=== PATIENT | male | born 1995 | race Caucasian/White ===

== ENCOUNTER 2023-03-27 15:34 | Emergency (ER) | payer SELFPAY ==
[2023-03-27] VITALS (8 sets, daily range): BP systolic 121–154; BP diastolic 67–91; PULSE 70–100; RESP 15–17; TEMP 36.6; O2SAT 95–100; BMI 27.3
--- NOTE | 2023-03-27 16:14 | ED_ITS ---
Documented by User: Kee Zepeda DO 03/28/23 05:47 HPI - Abdominal Pain General: Chief Complaint: Abdominal Pain Stated Complaint: upper abd pain, n/v since Time Seen by Provider: 03/27/23 15:50 Source: patient Mode of arrival: ambulatory History of Present Illness: 27-year-old male presents to the emergency room with complaints of nausea vomiting. He said for the last several days 2 days ago he was at another local ER was given IV fluids and antiemetics. He states he continues to have discomfort persistent nausea vomiting denies hematochezia melena hematemesis cough cramps no dysuria urgency or frequency no chest pain. He has been afebrile. MD elicited complaint: abdominal pain Pertinent past history: none Onset (ago): day(s) Pain Consistency: constant Quality: cramping Relieving factors: nothing Associated Symptoms: Reports nausea and vomiting; Denies anorexia, belching, bloating, change in bowel habits, change in stool character, chills, coffee ground emesis, constipation, GI cramping, diarrhea, dyspepsia, dysuria, excessive flatus, fever(s), heartburn, hematochezia, hematuria, hematemesis, fecal incontinence, loose stools, melena, poor appetite and syncope Review of Systems Const: Reports: fatigue and malaise; Denies: fever(s) or chills ENMT: Denies: throat pain, ear or mastoid pain, nasal discharge or nasal congestion Card: Denies: chest pain or syncope Resp: Denies: dyspnea, productive cough or non-productive cough GI: Reports: nausea and vomiting; Denies: abdominal pain, hematemesis, coffee ground emesis, heartburn, diarrhea, constipation, bloating, GI cramping, belching, excessive flatus, fecal incontinence, change in bowel habits, change in stool character, hematochezia or melena : Denies: dysuria, urinary frequency or hematuria Skin/Breast: Denies: rash or pruritus Physical Exam Const: GENERAL APPEARANCE: cooperative and comfortable ORIENTATION/CONSCIOUSNESS: Yes awake, Yes oriented to person, Yes oriented to place and Yes oriented to time HENMT: COMMON NORMALS: normocephalic, atraumatic and hearing grossly normal bilaterally HEAD & SCALP: normocephalic and atraumatic Resp: COMMON NORMALS: normal respiratory effort, No retractions, No use of accessory muscles and clear to auscultation bilaterally AUSCULTATION: clear to auscultation bilaterally Cardio: COMMON NORMALS: regular rate, regular rhythm and No murmurs present (Cardio) RATE: regular rate RHYTHM: regular rhythm GI: COMMON NORMALS: Soft to palpation and No hepatosplenomegaly present AUSCULTATION: Yes normoactive bowel sounds PALPATION: Yes Soft to palpation, No Tenderness to palpation present (GI), No Guarding due to palpation present (GI) and Yes No hepatosplenomegaly present Extremity: COMMON NORMALS: normal to inspection, capillary refill normal, no clubbing, cyanosis or edema, no calf tenderness and no pedal edema Neuro: SENSORIUM/ORIENTATION: Yes oriented to person, Yes oriented to place an d Yes oriented to time Skin: COMMON NORMALS: no rashes or lesions noted GENERAL SKIN EXAM: no rashes or lesions noted Course Vital Signs: Vital signs: Vital Signs Temperature 97.8 F 03/27/23 15:45 Pulse Rate 74 03/27/23 20:11 Respiratory Rate 17 03/27/23 20:11 Blood Pressure 135/84 03/27/23 20:11 Pulse Oximetry 98 03/27/23 20:11 Oxygen Delivery Me thod Nasal Cannula 03/27/23 20:00 Oxygen Flow Rate 2 03/27/23 20:00 MDM - Abdominal Pain Medical Decision Making Care signed out to Dr. Moya at change of shift. See final notes for diagnosis and disposition. Patient presents here with vomiting he feels much improved here his electrolytes have improved with IV fluids we will prescribe him Zofran we will prescribe him potassium as well he is to follow-up with his PCP along with general surgery return if worsening his exam at discharge is benign no signs of acute surgical abdomen. Lab Data 03/27/23 16:14 03/27/23 19:03 Labs/Radiology: Laboratory Results WBC 6.8 10^3/uL (4.0-10.0) 03/27/23 16:14 RBC 5.44 10^6/uL (4.1-5.3) H 03/27/23 16:14 Hgb 16.4 g/dL (11.7-16.6) 03/27/23 16:14 Hct 44.6 % (42.0-52.0) 03/27/23 16:14 MCV 82.0 fl (80-94) 03/27/23 16:14 MCH 30.1 pg (28.0-34.0) 03/27/23 16:14 MCHC 36.8 g/dL (30.0-36.0) H 03/27/23 16:14 RDW 11.0 % (12.1-15.1) L 03/27/23 16:14 Plt Count 182 10^3/cmm (130-400) 03/27/23 16:14 MPV 10.8 fL (7.4-10.4) H 03/27/23 16:14 Neut % (Auto) 62.5 % 03/27/23 16:14 Lymph % (Auto) 18.1 % 03/27/23 16:14 Oliver % (Auto) 17.6 % 03/27/23 16:14 Eos % (Auto) 1.2 % 03/27/23 16:14 Baso % (Auto) 0.3 % 03/27/23 16:14 Neut # (Auto) 4.24 10^3/uL (1.8-7.7) 03/27/23 16:14 Lymph # (Auto) 1.2 10^3/uL (0.8-4.8) 03/27/23 16:14 Oliver # (Auto) 1.2 10^3/uL (0.2-0.9) H 03/27/23 16:14 Eos # (Auto) 0.1 10^3/uL (0.0-0.8) 03/27/23 16:14 Baso # (Auto) 0.0 10^3/uL (0.0-0.1) 03/27/23 16:14 Nucleated RBC % (auto) 0 % 03/27/23 16:14 Nucleated RBCs # 0.0 /100WBC 03/27/23 16:14 Sodium 130 mmol/L (136-145) L 03/27/23 19:03 Potassium 3.0 mmol/L (3.5-5.1) L 03/27/23 19:03 Chloride 93 mmol/L (98-107) L 03/27/23 19:03 Carbon Dioxide 28 mmol/L (22-29) 03/27/23 19:03 Anion Gap 12.0 (5-19) 03/27/23 19:03 BUN 9 mg/dL (6-20) 03/27/23 19:03 Creatinine 0.9 mg/dL (0.7-1.2) 03/27/23 19:03 GFR Calculation 102.8 mL/min (90-130) 03/27/23 19:03 Glucose 95 mg/dL (65-115) 03/27/23 19:03 Calculated Osmolality 268 mOsm/kg (285-295) L 03/27/23 19:03 Calcium 7.8 mg/dL (8.5-10.5) L 03/27/23 19:03 Total Bilirubin 1.1 mg/dL (0.15-1.2) 03/27/23 16:14 AST 36 U/L (0-40) 03/27/23 16:14 ALT 22 U/L (0-41) 03/27/23 16:14 Alkaline Phosphatase 49 U/L (40-130) 03/27/23 16:14 Total Protein 6.9 g/dL (6.6-8.7) 03/27/23 16:14 Albumin 4.3 g/dL (3.5-5.2) 03/27/23 16:14 Globulin 2.6 g/dL (1.3-4.6) 03/27/23 16:14 Lipase 25 U/L (13-60) 03/27/23 16:14 Urine Color Yellow (Yellow) 03/27/23 18:57 Urine Appearance Clear (CLEAR) 03/27/23 18:57 Urine pH 6.5 (5-7) 03/27/23 18:57 Ur Specific [place] 1.005 (1.005-1.030) 03/27/23 18:57 Urine Protein Neg (Negative) 03/27/23 18:57 Urine Glucose (UA) Norm (Normal) 03/27/23 18:57 Urine Ketones 2+ (Negative) H 03/27/23 18:57 Urine Blood Neg (Negative) 03/27/23 18:57 Urine Nitrate Negative (Negative) 03/27/23 18:57 Urine Bilirubin Neg (Negative) 03/27/23 18:57 Urine Urobilinogen Norm mg/dL (Negative) 03/27/23 18:57 Ur Leukocyte Esterase Negative (Negative) 03/27/23 18:57 Discharge Plan Discharge Patient Disposition: Home Clinical Impression: Abdominal pain, Vomiting, Hypokalemia, Hyponatremia Condition: Stable Prescriptions: New hydrocodone-acetaminophen 5-325 mg tablet 1 tab PO Q6H PRN (Reason: pain) Qty: 14 0RF ondansetron 4 mg tablet,disintegrating 4 mg PO Q6H PRN (Reason: nausea and vomiting) Qty: 14 0RF potassium chloride 40 mEq/15 mL liquid 40 meq PO BID 4 Days Qty: 120 0RF Discharge Orders: Discharge ED (Routine); Ordered 03/27/23 Ordered By: Milton Moya Discharge Diet: Advance as tolerated Discharge Activity: Resume usual activity Patient Instructions: Hyponatremia (ED), Hypokalemia (ED), Acute Nausea and Vomiting (ED), Abdominal Pain (ED) Coding Level of Care Code ED Prevention Coordinator for Chg Fwd Documented by User: Milton Moya MD 03/27/23 20:02 HPI - Abdominal Pain General: Chief Complaint: Abdominal Pain Stated Complaint: upper abd pain, n/v since Time Seen by Provider: 03/27/23 15:50 Course Vital Signs: Vital signs: Vital Signs Temperature 97.8 F 03/27/23 15:45 Pulse Rate 74 03/27/23 20:11 Respiratory Rate 17 03/27/23 20:11 Blood Pressure 135/84 03/27/23 20:11 Pulse Oximetry 98 03/27/23 20:11 Oxygen Delivery Me thod Nasal Cannula 03/27/23 20:00 Oxygen Flow Rate 2 03/27/23 20:00 MDM - Abdominal Pain Medical Decision Making Patient presents here with vomiting he feels much improved here his electrolytes have improved with IV fluids we will prescribe him Zofran we will prescribe him potassium as well he is to follow-up with his PCP along with general surgery return if worsening his exam at discharge is benign no signs of acute surgical abdomen. Medical Records I reviewed the patient's medical records. Lab Data I reviewed the patient's lab results. 03/27/23 16:14 03/27/23 19:03 Labs/Radiology: Laboratory Results WBC 6.8 10^3/uL (4.0-10.0) 03/27/23 16:14 RBC 5.44 10^6/uL (4.1-5.3) H 03/27/23 16:14 Hgb 16.4 g/dL (11.7-16.6) 03/27/23 16:14 Hct 44.6 % (42.0-52.0) 03/27/23 16:14 MCV 82.0 fl (80-94) 03/27/23 16:14 MCH 30.1 pg (28.0-34.0) 03/27/23 16:14 MCHC 36.8 g/dL (30.0-36.0) H 03/27/23 16:14 RDW 11.0 % (12.1-15.1) L 03/27/23 16:14 Plt Count 182 10^3/cmm (130-400) 03/27/23 16:14 MPV 10.8 fL (7.4-10.4) H 03/27/23 16:14 Neut % (Auto) 62.5 % 03/27/23 16:14 Lymph % (Auto) 18.1 % 03/27/23 16:14 Oliver % (Auto) 17.6 % 03/27/23 16:14 Eos % (Auto) 1.2 % 03/27/23 16:14 Baso % (Auto) 0.3 % 03/27/23 16:14 Neut # (Auto) 4.24 10^3/uL (1.8-7.7) 03/27/23 16:14 Lymph # (Auto) 1.2 10^3/uL (0.8-4.8) 03/27/23 16:14 Oliver # (Auto) 1.2 10^3/uL (0.2-0.9) H 03/27/23 16:14 Eos # (Auto) 0.1 10^3/uL (0.0-0.8) 03/27/23 16:14 Baso # (Auto) 0.0 10^3/uL (0.0-0.1) 03/27/23 16:14 Nucleated RBC % (auto) 0 % 03/27/23 16:14 Nucleated RBCs # 0.0 /100WBC 03/27/23 16:14 Sodium 130 mmol/L (136-145) L 03/27/23 19:03 Potassium 3.0 mmol/L (3.5-5.1) L 03/27/23 19:03 Chloride 93 mmol/L (98-107) L 03/27/23 19:03 Carbon Dioxide 28 mmol/L (22-29) 03/27/23 19:03 Anion Gap 12.0 (5-19) 03/27/23 19:03 BUN 9 mg/dL (6-20) 03/27/23 19:03 Creatinine 0.9 mg/dL (0.7-1.2) 03/27/23 19:03 GFR Calculation 102.8 mL/min (90-130) 03/27/23 19:03 Glucose 95 mg/dL (65-115) 03/27/23 19:03 Calculated Osmolality 268 mOsm/kg (285-295) L 03/27/23 19:03 Calcium 7.8 mg/dL (8.5-10.5) L 03/27/23 19:03 Total Bilirubin 1.1 mg/dL (0.15-1.2) 03/27/23 16:14 AST 36 U/L (0-40) 03/27/23 16:14 ALT 22 U/L (0-41) 03/27/23 16:14 Alkaline Phosphatase 49 U/L (40-130) 03/27/23 16:14 Total Protein 6.9 g/dL (6.6-8.7) 03/27/23 16:14 Albumin 4.3 g/dL (3.5-5.2) 03/27/23 16:14 Globulin 2.6 g/dL (1.3-4.6) 03/27/23 16:14 Lipase 25 U/L (13-60) 03/27/23 16:14 Urine Color Yellow (Yellow) 03/27/23 18:57 Urine Appearance Clear (CLEAR) 03/27/23 18:57 Urine pH 6.5 (5-7) 03/27/23 18:57 Ur Specific [place] 1.005 (1.005-1.030) 03/27/23 18:57 Urine Protein Neg (Negative) 03/27/23 18:57 Urine Glucose (UA) Norm (Normal) 03/27/23 18:57 Urine Ketones 2+ (Negative) H 03/27/23 18:57 Urine Blood Neg (Negative) 03/27/23 18:57 Urine Nitrate Negative (Negative) 03/27/23 18:57 Urine Bilirubin Neg (Negative) 03/27/23 18:57 Urine Urobilinogen Norm mg/dL (Negative) 03/27/23 18:57 Ur Leukocyte Esterase Negative (Negative) 03/27/23 18:57 Discharge Plan Discharge Patient Disposition: Home Clinical Impression: Abdominal pain, Vomiting, Hypokalemia, Hyponatremia Condition: Stable Prescriptions: New hydrocodone-acetaminophen 5-325 mg tablet 1 tab PO Q6H PRN (Reason: pain) Qty: 14 0RF ondansetron 4 mg tablet,disintegrating 4 mg PO Q6H PRN (Reason: nausea and vomiting) Qty: 14 0RF potassium chloride 40 mEq/15 mL liquid 40 meq PO BID 4 Days Qty: 120 0RF Discharge Orders: Discharge ED (Routine); Ordered 03/27/23 Ordered By: Milton Moya Discharge Diet: Advance as tolerated Discharge Activity: Resume usual activity Patient Instructions: Hyponatremia (ED), Hypokalemia (ED), Acute Nausea and Vomiting (ED), Abdominal Pain (ED) Coding Level of Care Code ED Prevention Coordinator for Aniket Duke
[2023-03-27 16:34] LABS: Basophils % 0.3 %; Eosinophils # 0.1 10^3/uL (0.0-0.8); Eosinophils % 1.2 %; Hematocrit 44.6 % (42.0-52.0); Hemoglobin 16.4 g/dL (11.7-16.6); Lymphocytes # 1.2 10^3/uL (0.8-4.8); Lymphocytes % 18.1 %; Mean Corpuscular HGB Conc 36.8 g/dL (30.0-36.0); Mean Corpuscular Hemoglobin 30.1 pg (28.0-34.0); Mean Platelet Volume 10.8 fL (7.4-10.4); Monocytes # 1.2 10^3/uL (0.2-0.9); Monocytes % 17.6 %; Neutrophils # 4.24 10^3/uL (1.8-7.7); Neutrophils % 62.5 %; Nucleated Red Blood Cells % 0 %; Platelet Count 182 10^3/cmm (130-400); Red Blood Count 5.44 10^6/uL (4.1-5.3); White Blood Count 6.8 10^3/uL (4.0-10.0)
[2023-03-27] MEDS: sodium chloride 0.9% 1,000 ML 999 ML IV ×2 (16:43→17:25)
[2023-03-27] MEDS: ondansetron 2 mg/ML SDV 2 mL 4 MG IVP (16:47)
[2023-03-27 16:54] LABS: Alanine Aminotransferase 22 U/L (0-41); Albumin Level 4.3 g/dL (3.5-5.2); Alkaline Phosphatase 49 U/L (40-130); Anion Gap 15.9 (5-19); Aspartate Amino Transferase 36 U/L (0-40); Blood Urea Nitrogen 10 mg/dL (6-20); Calcium 9.2 mg/dL (8.5-10.5); Carbon Dioxide 28 mmol/L (22-29); Chloride 83 mmol/L (98-107); Globulin 2.6 g/dL (1.3-4.6); Glomerular Filtration Rate 102.8 mL/min (90-130); Glucose 99 mg/dL (65-115); Lipase 25 U/L (13-60); Osmolality Calculated 257 mOsm/kg (285-295); Sodium 124 mmol/L (136-145); Total Bilirubin 1.1 mg/dL (0.15-1.2); Total Protein 6.9 g/dL (6.6-8.7)
[2023-03-27 16:57] LABS: Potassium 2.9 mmol/L (3.5-5.1)
[2023-03-27] MEDS: potassium chloride oral liq 20 mEq/15 mL UDC 40 MEQ PO (17:25)
[2023-03-27 19:06] LABS: Add Urine Microscopic? NO; Charge for UA Resulting for Rev
[2023-03-27 19:12] LABS: Bilirubin Urine Neg (Negative); Blood Urine Neg (Negative); Glucose Urine UA Norm (Normal); Ketones Urine 2+ (Negative); Leukocyte Esterase Urine Negative (Negative); Nitrate Urine Negative (Negative); Protein Urine Neg (Negative); Specific Gravity, Urine 1.005 (1.005-1.030); Urine Appearance Clear (CLEAR); Urine Color Yellow (Yellow); Urobilinogen Urine Norm (Negative); pH Urine 6.5 (5-7)
[2023-03-27 19:26] LABS: Blood Urea Nitrogen 9 mg/dL (6-20); Calcium 7.8 mg/dL (8.5-10.5); Carbon Dioxide 28 mmol/L (22-29); Chloride 93 mmol/L (98-107); Glomerular Filtration Rate 102.8 mL/min (90-130); Glucose 95 mg/dL (65-115); Osmolality Calculated 268 mOsm/kg (285-295); Sodium 130 mmol/L (136-145)
--- NOTE | 2023-03-28 08:36 | DCPLANNER ---
Addendum entered by Carmen Mireles 04/04/23 11:38: land leases and rentals manager received the following message from the general surgery clinic regarding follow up appointment: unable to reach patient 03/30 On 03/29/23 @ 15:27 Michael Coats Wrote To General Surgery Front Off wouldn't let my call go through 03/29 will need to ask about insurance Original Note: land leases and rentals manager had message to schedule a follow up appointment for patient with general surgery. land leases and rentals manager sent patients information to the front office staff at general surgery. Patients information will be printed and reviewed. Clinic will call patient with appointment information.
--- NOTE | 2023-03-28 10:11 | DCPLANNER ---
rehabilitation center manager called patient due to no primary care physician - no answer at this time.
== END 2023-03-27 20:17 | disposition home or self-care (01) ==
PROVIDERS: Family Medicine; Emergency Provider Emergency Medicine
DX: R10.10 Upper abdominal pain, unspecified (principal); R11.0 Nausea; E87.6 Hypokalemia; E87.1 Hypo-osmolality and hyponatremia
CPT/HCPCS: 36415; 80048; 80053; 81003; 83690; 85025; 96361; 96374; 99284; J2405; J7030